=== PATIENT | male | born 1995 | race African-American/Black ===

== ENCOUNTER 2019-07-28 12:50 | Day surgery (SDC) | payer OTHER ==
[~2019-07-28 12:50] MED LIST: Buffered Lidocaine 1% SYRIN* 1 ML/SYRINGE INTRADERM ONE; Lactated Ringers 1000 ML Bag* 1,000 ML IV SCH
[2019-07-28] MEDS ORDERED: Glycopyrrolate IV* 0.2 MG/ML 1 ML VIAL ONE (15:48)
[2019-07-28] MEDS ORDERED: Dexamethasone IV* 4 MG/ML 1 ML (4 MG) ONE (15:48)
[2019-07-28] MEDS ORDERED: Propofol* 10 MG/ML 20 ML BTL ONE (15:48)
[2019-07-28] MEDS ORDERED: Succinylcholine* 20 MG/ML 10 ML VIAL ONE (15:48)
[2019-07-28] MEDS ORDERED: fentaNYL* 50 MCG/ML 2 ML VIAL (100 MCG VIAL) ONE (15:48)
[2019-07-28] MEDS ORDERED: Ketorolac INJ* 30 MG/ML 1 ML VIAL ONE (15:48)
[2019-07-28] MEDS ORDERED: Ondansetron INJ* 2 MG/ML VIAL ONE (15:48)
[2019-07-28] MEDS ORDERED: Ondansetron INJ* 2 MG/ML VIAL IV PRN (16:05)
[2019-07-28] MEDS ORDERED: Naloxone* 0.4 MG/ML 1 ML VIAL IV PRN (16:05)
[2019-07-28] MEDS ORDERED: diPHENhydraMINE IV* 50 MG/ML 1 ml VIAL (BENADRYL) IV PRN (16:05)
[2019-07-28] MEDS ORDERED: oxyCODONE/Acetamin 5/325 MG* TAB PO PRN (16:05)
[2019-07-28] MEDS ORDERED: fentaNYL* 50 MCG/ML 2 ML VIAL (100 MCG VIAL) IV PRN (16:05)
[2019-07-28] MEDS ORDERED: Bupivacaine 0.25% SDV* 30 ML ONE (16:13)
[2019-07-28 17:46] VITALS: BP 139/81
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
== END 2019-07-28 18:55 ==
LOC: OR 12:50
PROVIDERS: ATTEND Orthopaedic Surgery
DX: M79.5 Residual foreign body in soft tissue (principal); T84.84XA Pain due to internal orthopedic prosthetic devices, implants and grafts, initial encounter; Y83.1 Surgical operation with implant of artificial internal device as the cause of abnormal reaction of the patient, or of later complication, without mention of misadventure at the time of the procedure; F17.210 Nicotine dependence, cigarettes, uncomplicated
CPT/HCPCS: 87070; 87073; 87102; 87116; 87205; 87206; 88300; 88305; J0330; J1100; J1885; J2405; J2704; J3010; J3490